=== PATIENT | male | born 1990 | race Caucasian/White ===

== ENCOUNTER 2018-09-15 12:49 | Emergency (ER) | payer BC, OTHER ==
[2018-09-15 12:53] VITALS: BP 150/91
--- NOTE | 2018-09-15 13:41 | EDPHY ---
H & P Stated Complaint: ABD PAIN Time Seen by Provider: 09/15/18 13:09 HPI/ROS: CHIEF COMPLAINT: Abdominal pain HISTORY OF PRESENT ILLNESS: 28-year-old male presents with abdominal pain. Onset of severe abdominal pain this morning while stretching. Sudden onset of pain around the umbilicus. The pain is localized and moderate. No other associated symptoms. No alleviating factors. No prior similar symptoms. REVIEW OF SYSTEMS: complete 10 point ROS reviewed and is negative except for the noted elements in the HPI - Personal History Current Tetanus/Diphtheria Vaccine: Yes - Medical/Surgical History Hx Asthma: No Hx Chronic Respiratory Disease: No Hx Diabetes: No Hx Cardiac Disease: No Hx Renal Disease: No Hx Cirrhosis: No Hx Alcoholism: No Hx HIV/AIDS: No Hx Splenectomy or Spleen Trauma: No - Social History Smoking Status: Never smoked Alcohol Use: Sober - Physical Exam Exam: General Appearance: Alert, pleasant Eyes: Pupils equal and round, no conjunctival pallor ENT, Mouth: Mucous membranes moist Neck: Normal inspection Respiratory: Lungs are clear to auscultation Cardiovascular: Regular rate and rhythm Gastrointestinal: Abdomen is soft, small bulging area within the umbilicus, easily reduced, after which the pain resolved. Neurological: A&O, nonfocal, normal gait Skin: Warm and dry Extremities: Normal inspection Psychiatric: Mood and affect normal Constitutional: Initial Vital Signs Temperature (C) 36.6 C 09/15/18 12:52 Heart Rate 75 09/15/18 12:52 Respiratory Rate 16 09/15/18 12:52 Blood Pressure 150/91 H 09/15/18 12:52 O2 Sat (%) 100 09/15/18 12:52 O2 Delivery Mode Room Air Allergies/Adverse Reactions: Penicillins Allergy (Verified 09/15/18 12:51) Sulfa (Sulfonamide Antibiotics) Allergy (Verified 09/15/18 12:51) Home Medications: Medication Instructions Recorded NK [No Known Home Meds] 09/15/18 Medical Decision Making ED Course/Re-evaluation: This patient has a reducible umbilical hernia. The umbilical hernia was easily reduced by me with gentle pressure. Instructions given and warning signs discussed. Follow up with surgery. Differential Diagnosis: Differential diagnosis includes though it is not limited to appendicitis, cholecystitis, diverticulitis, pyelonephritis, bowel perforation, small bowel obstruction. Departure - Departure Disposition: Home, Routine, Self-Care Clinical Impression: Umbilical hernia Qualifiers: Obstruction and gangrene presence: without obstruction or gangrene Qualified Code(s): K42.9 - Umbilical hernia without obstruction or gangrene Condition: Good Instructions: Umbilical Hernia (ED) Referrals: Galdino Garcia MD [Medical Doctor] - As per Instructions (Call to make an appointment.)
== END 2018-09-15 13:48 | disposition home or self-care (01) ==
DX: K42.9 Umbilical hernia without obstruction or gangrene (principal)